=== PATIENT | male | born 1960 | race Caucasian/White ===

== ENCOUNTER 2023-12-18 21:51 | Emergency (ER) | payer BC ==
[~2023-12-18] VITALS: Ht 172.7 cm; Wt 117.9 kg
[2023-12-18 23:52] LABS: BASOPHILS # (AUTO) 0.1 (0.0-0.1); EOSINOPHILS # (AUTO) 0.2 (0.0-0.4); EOSINOPHILS % 2.8 % (0.0-6.0); HEMATOCRIT 43.3 % (38.2-49.6); HEMOGLOBIN 14.4 g/dL (14.0-18.0); LYMPHOCYTES # (AUTO) 2.3 (1.0-3.2); MEAN CORPUSCULAR HEMOGLOBIN 30.4 pg (28-32); MEAN CORPUSCULAR HGB CONC 33.3 g/dL (31-35); MEAN CORPUSCULAR VOLUME 91.5 fL (81-99); MONOCYTES # (AUTO) 0.6 (0.2-0.8); MONOCYTES % 8.3 % (4.4-11.3); NEUTROPHILS % 55.6 % (38.7-80.0); PLATELET COUNT 189 x10e3/uL (140-360); RED BLOOD COUNT 4.73 x10e6/uL (4.3-5.7); RED CELL DISTRIBUTION WIDTH 12.6 % (11.7-14.4); WHITE BLOOD COUNT 7.25 x10e3/uL (4.8-10.8)
[2023-12-19 00:16] LABS: ALBUMIN 3.9 g/dL (3.5-5.0); ALBUMIN/GLOBULIN RATIO 1.2 (0.8-2.0); ANION GAP 13.8 mmol/L (8-16); BILIRUBIN,TOTAL 0.8 mg/dL (0.2-1.2); CALCIUM 9.5 mg/dL (8.4-10.2); CREATININE, SERUM 0.93 mg/dL (0.72-1.25); POTASSIUM 3.8 mmol/L (3.5-5.1); TOTAL PROTEIN 7.2 g/dL (6.5-8.1)
[2023-12-19 00:22] LABS: TROPONIN I 0.007 ng/mL (0-0.300)
[2023-12-19 02:30] VITALS: O2SAT 98
== END 2023-12-19 02:55 | disposition home or self-care (01) ==
LOC: ER 21:55
DX: R42 Dizziness and giddiness (principal); I10 Essential (primary) hypertension; E78.5 Hyperlipidemia, unspecified; G47.30 Sleep apnea, unspecified; R94.31 Abnormal electrocardiogram [ECG] [EKG]; Z87.442 Personal history of urinary calculi
CPT/HCPCS: 36415; 70450; 80053; 82550; 84484; 85025; 93005; 99284

== ENCOUNTER → 2024-10-25 | Day surgery (SDC) | payer BC ==
[~2024-10-25] MED LIST: FENTANYL CITRATE/PF 100MCG/2 ML INJ ONE; HYOSCYAMINE SULFATE 0.5 MG/ML INJ ONE; LIDOCAINE HCL 2% LOCAL INJ 5 ML SDV VIAL INJ ONE; METOCLOPRAMIDE HCL 10 MG/2ML VIAL ONE; PROPOFOL IV EMULSION 10 MG/ML 20 ML VIAL ONE; PROPOFOL IV EMULSION 50 ML IV ONE; VITAMIN C1000 MG PO; ZESTRIL10 MG PO
[2024-10-25] MEDS: LACTATED RINGER'S 1,000 ML ONE (11:06)
[2024-10-25 13:15] VITALS: TEMP 97
[2024-10-25 13:40] VITALS: BP 145/86; PULSE 74; RESP 16; O2SAT 96
== END | disposition home or self-care (01) ==
LOC: OR 09:18
PROVIDERS: ATTEND Internal Medicine Gastroenterology
DX: K20.90 Esophagitis, unspecified without bleeding (principal); Z12.11 Encounter for screening for malignant neoplasm of colon; K29.50 Unspecified chronic gastritis without bleeding; B96.81 Helicobacter pylori [H. pylori] as the cause of diseases classified elsewhere; K25.9 Gastric ulcer, unspecified as acute or chronic, without hemorrhage or perforation; K26.9 Duodenal ulcer, unspecified as acute or chronic, without hemorrhage or perforation; K64.8 Other hemorrhoids; K57.30 Diverticulosis of large intestine without perforation or abscess without bleeding; I10 Essential (primary) hypertension; E78.00 Pure hypercholesterolemia, unspecified; G47.33 Obstructive sleep apnea (adult) (pediatric); F17.200 Nicotine dependence, unspecified, uncomplicated; Z87.442 Personal history of urinary calculi; Z79.899 Other long term (current) drug therapy
CPT/HCPCS: 43239; 45378; J1980; J2003; J2470; J2704 ×2; J2765; J3010; J7121

== ENCOUNTER 2025-02-10 11:51 | Inpatient (IN) | payer BC ==
[2025-02-10] VITALS (10 sets, daily range): BP systolic 133–165; BP diastolic 55–93; PULSE 32–69; RESP 12–23; TEMP 97.4–98.1; O2SAT 96–100
[~2025-02-10] VITALS: Ht 172.7 cm; Wt 92.5 kg
[~2025-02-10 11:51] MED LIST changes: -FENTANYL CITRATE/PF 100MCG/2 ML INJ ONE; -HYOSCYAMINE SULFATE 0.5 MG/ML INJ ONE; -LIDOCAINE HCL 2% LOCAL INJ 5 ML SDV VIAL INJ ONE; -METOCLOPRAMIDE HCL 10 MG/2ML VIAL ONE; -PROPOFOL IV EMULSION 10 MG/ML 20 ML VIAL ONE; -PROPOFOL IV EMULSION 50 ML IV ONE
[2025-02-10] MEDS ORDERED: ONDANSETRON HCL INJ 2MG/ML 2ML 2 MG/ML VIAL IV PRN (12:30)
[2025-02-10] MEDS ORDERED: Morphine 2mg Syringe 2 MG/ML SYR IV PRN (12:30)
[2025-02-10 12:32] LABS: BASOPHILS # (AUTO) 0.1 (0.0-0.1); BASOPHILS % 0.9 % (0.0-1.0); EOSINOPHILS # (AUTO) 0.1 (0.0-0.4); EOSINOPHILS % 1.3 % (0.0-6.0); HEMATOCRIT 44.9 % (38.2-49.6); HEMOGLOBIN 15.9 g/dL (14.0-18.0); LYMPHOCYTES # (AUTO) 2.3 (1.0-3.2); LYMPHOCYTES % 24.4 % (18.0-39.1); MEAN CORPUSCULAR HEMOGLOBIN 30.6 pg (28-32); MEAN CORPUSCULAR HGB CONC 35.4 g/dL (31-35); MEAN CORPUSCULAR VOLUME 86.3 fL (81-99); MONOCYTES # (AUTO) 0.7 (0.2-0.8); MONOCYTES % 7.5 % (4.4-11.3); NEUTROPHILS # (AUTO) 6.1 (2.1-6.9); NEUTROPHILS % 65.6 % (38.7-80.0); PLATELET COUNT 257 x10e3/uL (140-360); WHITE BLOOD COUNT 9.23 x10e3/uL (4.8-10.8)
[2025-02-10 12:59] LABS: ALBUMIN 4.6 g/dL (3.5-5.0); ALBUMIN/GLOBULIN RATIO 1.2 (0.8-2.0); ANION GAP 16.7 mmol/L (8-16); BILIRUBIN,TOTAL 1.2 mg/dL (0.2-1.2); CALCIUM 10.2 mg/dL (8.4-10.2); CREATININE, SERUM 1.2 mg/dL (0.72-1.25); POTASSIUM 3.7 mmol/L (3.5-5.1); TOTAL PROTEIN 8.5 g/dL (6.5-8.1)
[2025-02-10] MEDS: CALCIUM GLUC 1 G/50 ML NACL 50 ML IV ONE (13:02)
[2025-02-10 13:04] LABS: TROPONIN I 0.016 ng/mL (0-0.300)
[2025-02-10] MEDS: GLUCAGON FOR INJ 1 MG VIAL IV ONE (13:04)
[2025-02-10] MEDS: SODIUM CHLORIDE 0.9% 1000ML 1,000 ML IV SCH (13:04)
[2025-02-10] MEDS ORDERED: ACETAMINOPHEN 325 MG TAB PO PRN (15:30)
[2025-02-10 15:38] LABS: INR 0.93
[2025-02-10] MEDS ORDERED: DOXYCYCLINE HY100 MG PO (16:08)
[2025-02-10] MEDS ORDERED: LIDOCAINE HCL 2% LOCAL 20 ML VIAL ONE (16:12)
[2025-02-10] MEDS ORDERED: GENTAMICIN SULFATE 40 MG/ML 2 ML VIAL ONE (16:12)
[2025-02-10] MEDS ORDERED: SODIUM CHLORIDE 0.9% 500ML 500 ML ONE (16:13)
[2025-02-10] MEDS ORDERED: SODIUM CHLORIDE 0.9% 1000ML 2,000 ML ONE (16:13)
[2025-02-10] MEDS ORDERED: Vancomycin IV 1 GM VIAL ONE (16:13)
[2025-02-10] MEDS ORDERED: SODIUM CHLORIDE 0.9% 250ML 250 ML ONE (16:13)
[2025-02-10] MEDS ORDERED: SODIUM BICARBONATE 8.4% SYRING 0 ML ONE (16:13)
[2025-02-10] MEDS ORDERED: IOPAMIDOL 610MG/1ML 300 MG/ML VIAL IV ONE (16:13)
[2025-02-10] MEDS ORDERED: FENTANYL CITRATE/PF 100MCG/2 ML INJ ONE (16:39)
[2025-02-10] MEDS ORDERED: MIDAZOLAM HCL 2 MG/2 ML VIAL ONE ×2 (16:39→17:05)
[2025-02-10] MEDS: MUPIROCIN 2% OINT 22 GM TUBE TOP SCH (16:52)
[2025-02-10] MEDS: DOXYCYCLINE HYCLATE TABLET 100 MG TAB PO SCH (17:38)
[2025-02-10 21:10] LABS: TROPONIN I 0.042 ng/mL (0-0.300)
[2025-02-10] MEDS: HYDROCODONE/APAP 5MG-325MG TAB PO PRN (22:26)
[2025-02-11] VITALS (9 sets, daily range): BP systolic 109–162; BP diastolic 71–89; PULSE 60–74; RESP 12–24; TEMP 97.4–98; O2SAT 94–99
[2025-02-11 04:33] LABS: BASOPHILS # (AUTO) 0.1 (0.0-0.1); EOSINOPHILS # (AUTO) 0.2 (0.0-0.4); EOSINOPHILS % 2.7 % (0.0-6.0); HEMATOCRIT 39.6 % (38.2-49.6); HEMOGLOBIN 13.9 g/dL (14.0-18.0); LYMPHOCYTES # (AUTO) 1.9 (1.0-3.2); LYMPHOCYTES % 27.7 % (18.0-39.1); MEAN CORPUSCULAR HEMOGLOBIN 30.5 pg (28-32); MEAN CORPUSCULAR HGB CONC 35.1 g/dL (31-35); MONOCYTES # (AUTO) 0.6 (0.2-0.8); MONOCYTES % 8.9 % (4.4-11.3); NEUTROPHILS % 59.4 % (38.7-80.0); PLATELET COUNT 191 x10e3/uL (140-360); RED BLOOD COUNT 4.55 x10e6/uL (4.3-5.7); RED CELL DISTRIBUTION WIDTH 12.8 % (11.7-14.4); WHITE BLOOD COUNT 6.71 x10e3/uL (4.8-10.8)
[2025-02-11 04:56] LABS: ANION GAP 11.8 mmol/L (8-16); POTASSIUM 3.8 mmol/L (3.5-5.1)
[2025-02-11 04:57] LABS: ALBUMIN/GLOBULIN RATIO 1.3 (0.8-2.0); BILIRUBIN,TOTAL 1.4 mg/dL (0.2-1.2); CALCIUM 8.8 mg/dL (8.4-10.2); CREATININE, SERUM 0.86 mg/dL (0.72-1.25)
[2025-02-11 05:02] LABS: ALBUMIN 3.5 g/dL (3.5-5.0); TOTAL PROTEIN 6.2 g/dL (6.5-8.1)
[2025-02-11 05:26] LABS: TROPONIN I 0.069 ng/mL (0-0.300)
[2025-02-11] MEDS ORDERED: DOXYCYCLINE HY100 MG PO (13:29)
== END 2025-02-11 15:00 | disposition home or self-care (01) | DRG 243 ==
LOC: ER 11:55 → ERHOLD 12:26 → ICU 14:43
PROVIDERS: ADMIT Internal Medicine; ATTEND Internal Medicine
PROC: 0JH606Z Insertion of Pacemaker, Dual Chamber into Chest Subcutaneous Tissue and Fascia, Open Approach (ICD-10-PCS; principal; 2025-02-10)
PROC: 02H63JZ Insertion of Pacemaker Lead into Right Atrium, Percutaneous Approach (ICD-10-PCS; 2025-02-10)
PROC: 02HK3JZ Insertion of Pacemaker Lead into Right Ventricle, Percutaneous Approach (ICD-10-PCS; 2025-02-10)
DX: I44.2 Atrioventricular block, complete (principal); N17.9 Acute kidney failure, unspecified; R00.1 Bradycardia, unspecified; R42 Dizziness and giddiness; I10 Essential (primary) hypertension; I25.10 Atherosclerotic heart disease of native coronary artery without angina pectoris; E78.5 Hyperlipidemia, unspecified; E66.9 Obesity, unspecified; Z68.31 Body mass index [BMI] 31.0-31.9, adult; G47.30 Sleep apnea, unspecified; Z79.899 Other long term (current) drug therapy
CPT/HCPCS: 33208; 36415; 71045; 80053; 82550; 83690; 83880; 84484; 85025; 85610; 93005; 93306; 94660; 94799; 96361; 99152; 99153; 99285; C1769; J1580; J1610; J2003; J2250; J7030; J7040; J7050